=== PATIENT | female | born 1970 | race American Indian/Alaskan Native ===

== ENCOUNTER 2020-11-09 18:29 | Emergency (ER) | payer SELFPAY ==
--- NOTE | 2020-11-09 21:09 | EDM.PDOC ---
ED HPI GENERAL MEDICAL PROBLEM - General Chief Complaint: Headache Stated Complaint: WANTS TO BE TESTED FOR COVID Time Seen by Provider: 11/09/20 21:10 Source of Information: Reports: Patient History Limitations: Reports: No Limitations - History of Present Illness INITIAL COMMENTS - FREE TEXT/NARRATIVE: ED with c/o frontal headache x 2 days, some cough congestion. Roommate positive for COVID last week .frontal headache Pain Score (Numeric/FACES): 6 - Related Data Allergies Allergy/AdvReac Type Severity Reaction Status Date / Time No Known Allergies Allergy Verified 11/09/20 20:05 Home Meds: Home Meds . [No Known Home Meds] 04/07/19 [History] Past Medical History Gastrointestinal History: Reports: Bowel Obstruction, Other (See Below) Other Gastrointestinal History: describes chronic constipation "then i fill the toilet". Genitourinary History: Reports: None Oncologic (Cancer) History: Reports: Breast Other Oncologic History: states has had radiation treatment for Breast cancer. - Past Surgical History Female Surgical History: Reports: Hysterectomy Oncologic Surgical History: Reports: Lumpectomy Social & Family History - Family History Family Medical History: No Pertinent Family History - Tobacco Use Tobacco Use Status *Q: Current Every Day Tobacco User Years of Tobacco use: 20 Packs/Tins Daily: 1 - Caffeine Use Caffeine Use: Reports: None - Recreational Drug Use Recreational Drug Use: No ED ROS GENERAL - Review of Systems Review Of Systems: See Below Constitutional: Reports: No Symptoms HEENT: Reports: Sinus Problem Respiratory: Reports: Cough. Denies: Shortness of Breath, Wheezing, Sputum Cardiovascular: Reports: No Symptoms GI/Abdominal: Reports: No Symptoms Musculoskeletal: Reports: Arm Pain (intermittent tingling left arm associated with position and repetitive work type symptoms for months, has not seen by PCP ) Skin: Reports: No Symptoms Psychiatric: Reports: No Symptoms - Physical Exam Exam: See Below Exam Limited By: No Limitations General Appearance: Alert, No Apparent Distress Ears: Normal External Exam Nose: Normal Inspection Throat/Mouth: Normal Inspection Head Exam: Atraumatic, Normocephalic Neck: Normal Inspection, Full Range of Motion Respiratory/Chest: No Respiratory Distress, Lungs Clear, Normal Breath Sounds Cardiovascular: Normal Peripheral Pulses, Regular Rate, Rhythm GI/Abdominal: Normal Bowel Sounds, Soft Neuro Exam (Abbreviated): Alert, Oriented, Normal Cognition Back Exam: Full Range of Motion Extremities: Normal Inspection Psychiatric: Normal Affect Skin Exam: Warm, Dry, Intact, Normal Color Course - Vital Signs Last Recorded V/S: Last Vital Signs Temp 97.3 F 11/09/20 19:21 Pulse 96 11/09/20 19:21 Resp 16 11/09/20 19:21 BP 115/81 11/09/20 19:21 Pulse Ox 100 11/09/20 19:21 - Orders/Labs/Meds Labs: Laboratory Tests 11/09/20 Range/Units 19:21 SARS-CoV-2 RNA (FAROOQ) Negative (NEGATIVE) Departure - Departure Time of Disposition: :22 Disposition: Home, Self-Care 01 Condition: Good Clinical Impression: Exposure to confirmed case of COVID-19 - Discharge Information *PRESCRIPTION DRUG MONITORING PROGRAM REVIEWED*: No *COPY OF PRESCRIPTION DRUG MONITORING REPORT IN PATIENT YOEL: No Instructions: Symptoms of Coronavirus - CDC (04/22/2020), COVID-19: Quarantine vs. Isolation - [facility] [place] (02/15/2020) Forms: ED Department Discharge Additional Instructions: tylenol 500mg every 4 hours as needed for discomfort/ fever rest fluids isolate retest for COVID on Wednesday Urgent follow up if severe difficulty breathing Sepsis Event Note (ED) - Evaluation Sepsis Screening Result: No Definite Risk - Focused Exam Vital Signs: Vital Signs Temp Pulse Resp BP Pulse Ox 11/09/20 19:21 97.3 F 96 16 115/81 100
== END 2020-11-09 21:37 | disposition home or self-care (01) ==
LOC: DL.ED 18:29
DX: R51.9 Headache, unspecified (principal); R05 Cough; Z72.0 Tobacco use; Z20.822 Contact with and (suspected) exposure to COVID-19
CPT/HCPCS: 99283; U0002

== ENCOUNTER 2022-01-15 05:22 | Day surgery (SDC) | payer BC, MEDICAID ==
[~2022-01-15 05:22] MED LIST: Sodium Chloride 0.9% 10 ML Syringe FLUSH PRN; Sodium Chloride 0.9% 10 ML Syringe FLUSH SCH
[2022-01-15] MEDS ORDERED: Midazolam 1 MG/ML 2 ML SDV IV ONE ×3 (05:23→06:31)
[2022-01-15] MEDS ORDERED: fentaNYL 100 MCG/2 ML SDV IV ONE ×2 (05:23→06:29)
[2022-01-15] MEDS ORDERED: Dextrose 5%-0.45% NaCl 1,000 ML IV SCH (06:00)
[2022-01-15] MEDS ORDERED: fentaNYL 100 MCG/2 ML SDV ONE (06:22)
[2022-01-15] MEDS ORDERED: Midazolam 1 MG/ML 2 ML SDV ONE (06:22)
== END 2022-01-15 08:37 | disposition home or self-care (01) ==
LOC: DL.ENDO 05:22
PROVIDERS: ATTEND Internal Medicine Gastroenterology
DX: R10.13 Epigastric pain (principal); R10.10 Upper abdominal pain, unspecified; F17.210 Nicotine dependence, cigarettes, uncomplicated; Z86.010 Personal history of colon polyps; Z90.11 Acquired absence of right breast and nipple; Z90.710 Acquired absence of both cervix and uterus; Z80.0 Family history of malignant neoplasm of digestive organs
CPT/HCPCS: 43239; 87077; J2250; J3010; J7042

== ENCOUNTER 2022-01-19 05:12 | Day surgery (SDC) | payer MEDICAID ==
[~2022-01-19 05:12] MED LIST changes: -Sodium Chloride 0.9% 10 ML Syringe FLUSH PRN
[2022-01-19] MEDS ORDERED: fentaNYL 100 MCG/2 ML SDV IV ONE (05:13)
[2022-01-19] MEDS ORDERED: Midazolam 1 MG/ML 2 ML SDV IV ONE (05:13)
[2022-01-19] MEDS: Dextrose 5%-0.45% NaCl 1,000 ML IV SCH (05:50)
[2022-01-19] MEDS ORDERED: Sodium Chloride 0.9% 10 ML Syringe FLUSH PRN (06:00)
[2022-01-19] MEDS ORDERED: Midazolam 1 MG/ML 2 ML SDV ONE ×2 (06:04→06:46)
[2022-01-19] MEDS ORDERED: fentaNYL 100 MCG/2 ML SDV ONE (06:04)
[2022-01-19] MEDS: fentaNYL 100 MCG/2 ML SDV IV ONE ×6 (06:29→06:44)
[2022-01-19] MEDS: Midazolam 1 MG/ML 2 ML SDV IV ONE ×9 (06:32→06:52)
== END 2022-01-19 09:17 | disposition home or self-care (01) ==
LOC: DL.ENDO 05:12
PROVIDERS: ATTEND Internal Medicine Gastroenterology
DX: K64.4 Residual hemorrhoidal skin tags (principal); K64.8 Other hemorrhoids; K59.00 Constipation, unspecified; F17.210 Nicotine dependence, cigarettes, uncomplicated; Z90.710 Acquired absence of both cervix and uterus; Z86.010 Personal history of colon polyps; Z98.890 Other specified postprocedural states; Z80.0 Family history of malignant neoplasm of digestive organs
CPT/HCPCS: 45378; J2250; J3010; J7042

== ENCOUNTER 2022-03-30 07:03 | Day surgery (SDC) | payer BC, MEDICAID ==
[~2022-03-30 07:03] MED LIST changes: +Dextrose 5%-0.45% NaCl 1,000 ML IV SCH; +Midazolam 1 MG/ML 2 ML SDV ONE; +Propofol 200 MG/20 ML SDV ONE; +Sodium Chloride 0.9% 10 ML Syringe FLUSH PRN; +fentaNYL 100 MCG/2 ML SDV ONE
[2022-03-30] MEDS ORDERED: Sodium Chloride 0.9% 10 ML Syringe IV ONE (07:04)
[2022-03-30] MEDS ORDERED: Dexmedetomidine 200 MCG/2 ML SDV IV ONE (07:04)
[2022-03-30] MEDS ORDERED: Lidocaine 1% 10 ML MDV IVPUSH ONE (07:04)
[2022-03-30] MEDS ORDERED: Propofol 200 MG/20 ML SDV IV ONE (07:04)
[2022-03-30] MEDS ORDERED: Lactated Ringers 500 ML IV ONE (07:04)
== END 2022-03-30 10:45 | disposition home or self-care (01) ==
LOC: DL.ENDO 07:03
PROVIDERS: ATTEND Internal Medicine Gastroenterology
DX: Z12.11 Encounter for screening for malignant neoplasm of colon (principal); D12.2 Benign neoplasm of ascending colon; D12.0 Benign neoplasm of cecum; D12.4 Benign neoplasm of descending colon; F17.210 Nicotine dependence, cigarettes, uncomplicated; Z90.710 Acquired absence of both cervix and uterus; Z86.010 Personal history of colon polyps; Z98.890 Other specified postprocedural states
CPT/HCPCS: J2704; J3490; J7120

== ENCOUNTER 2023-04-24 16:10 | Emergency (ER) | payer SELFPAY ==
[2023-04-24] MEDS: Acetaminophen 500 MG Tab PO ONE (16:56)
[2023-04-24] MEDS: Ketorolac 30 MG/ML SDV IM ONE (16:56)
== END 2023-04-24 18:00 | disposition home or self-care (01) ==
LOC: DL.ED 16:10
DX: M25.531 Pain in right wrist (principal); Z79.899 Other long term (current) drug therapy; Z90.710 Acquired absence of both cervix and uterus
CPT/HCPCS: 73110; 96372; 99283; A9270; J1885

== ENCOUNTER 2024-03-05 16:42 | Emergency (ER) | payer SELFPAY ==
[2024-03-05] MEDS: predniSONE 20 MG Tab PO ONE (19:31)
== END 2024-03-05 19:50 | disposition home or self-care (01) ==
LOC: DL.ED 16:42
DX: M92.71 Juvenile osteochondrosis of metatarsus, right foot (principal); F17.210 Nicotine dependence, cigarettes, uncomplicated; Z79.899 Other long term (current) drug therapy; Z90.710 Acquired absence of both cervix and uterus
CPT/HCPCS: 73700; 99284; J7512

== ENCOUNTER → 2024-08-07 | Day surgery (SDC) | payer OTHER ==
[~2024-08-07] MED LIST changes: +Dextrose 5%-0.45% NaCl 1,000 ML IV ONE; +Lactated Ringers 1,000 ML IV ONE; +Lidocaine 2% 20 ML MDV NERVRT ONE; -Midazolam 1 MG/ML 2 ML SDV ONE; +Propofol 200 MG/20 ML SDV IV ONE; -Sodium Chloride 0.9% 10 ML Syringe FLUSH PRN; -Sodium Chloride 0.9% 10 ML Syringe FLUSH SCH; -fentaNYL 100 MCG/2 ML SDV ONE
[2024-08-07] MEDS: Lactated Ringers 1,000 ML IV SCH (07:18)
== END ==
LOC: DL.ENDO 06:37
PROVIDERS: ATTEND Internal Medicine Gastroenterology
DX: K29.00 Acute gastritis without bleeding (principal); K44.9 Diaphragmatic hernia without obstruction or gangrene
CPT/HCPCS: J2003; J2704; J7120

== ENCOUNTER 2024-08-15 06:29 | Day surgery (SDC) | payer OTHER ==
[~2024-08-15 06:29] MED LIST changes: -Dextrose 5%-0.45% NaCl 1,000 ML IV ONE; -Dextrose 5%-0.45% NaCl 1,000 ML IV SCH; -Lactated Ringers 1,000 ML IV ONE; -Lidocaine 2% 20 ML MDV NERVRT ONE; -Propofol 200 MG/20 ML SDV IV ONE
[2024-08-15] MEDS ORDERED: Dextrose 5%-0.45% NaCl 1,000 ML IV SCH (06:30)
[2024-08-15] MEDS: Lactated Ringers 1,000 ML IV SCH (06:40)
[2024-08-15] MEDS ORDERED: propofoL 1,000 MG/100 ML 100 ML ONE (07:44)
== END 2024-08-15 09:38 | disposition home or self-care (01) ==
LOC: DL.ENDO 06:29
PROVIDERS: ATTEND Internal Medicine Gastroenterology
DX: Z12.11 Encounter for screening for malignant neoplasm of colon (principal); K64.4 Residual hemorrhoidal skin tags; E66.09 Other obesity due to excess calories; Z68.29 Body mass index [BMI] 29.0-29.9, adult
CPT/HCPCS: 45378; J7120